=== PATIENT | male | born 1990 | race Caucasian/White ===

== ENCOUNTER 2025-05-13 13:16 | Outpatient (CLI) | payer BC | END 2025-05-13 13:17 | disposition home or self-care (01) | LOC: SCSMRI 13:16 | PROVIDERS: ATTEND Orthopaedic Surgery | DX: M54.50 Low back pain, unspecified (principal); M51.16 Intervertebral disc disorders with radiculopathy, lumbar region; M48.061 Spinal stenosis, lumbar region without neurogenic claudication | CPT/HCPCS: 72148 ==